=== PATIENT | female | born 1975 | race Caucasian/White ===

== ENCOUNTER 2021-10-09 13:11 | Emergency (ER) | payer MEDICAID ==
[~2021-10-09] VITALS: Ht 160 cm; Wt 80.3 kg
[2021-10-09 13:42] VITALS: BP 120/74
--- NOTE | 2021-10-09 13:46 | NUR ---
[facility]
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
[2021-10-09] MEDS ORDERED: KETOROLAC 30 MG/ML VIAL IM ONE (14:10)
--- NOTE | 2021-10-09 14:30 | NUR ---
STEVEN TAI AT PT SIDE FOR EVAL
[2021-10-09] MEDS ORDERED: ACET-10509 PO (15:08)
[2021-10-09] MEDS ORDERED: IBUP-2213 PO (15:08)
--- NOTE | 2021-10-09 15:30 | NUR ---
SHORT LEG POSTERIOR SPLINT APPLIED TO R LOWER LEG. + CMS AFTER APPLICATION. STIRRUP, PRE-FABRICATED, APPLIED TO R ANKLE. + CMS AFTER APPLICATION.
[2021-10-09 15:40] VITALS: BP 120/74
--- NOTE | 2021-10-09 15:42 | NUR ---
Patient discharged with v/s stable. Written and verbal after care instructions given and explained. Patient alert, oriented and verbalized understanding of instructions. Ambulatory with steady gait. All questions addressed prior to discharge. ID band removed. Patient advised to follow up with PMD. Rx of IBUPROFEN AND TYLENOL EXTRA STRENGTH given. Patient educated on indication of medication including possible reaction and side effects. Opportunity to ask questions provided and answered.
== END 2021-10-09 15:52 | disposition home or self-care (01) ==
LOC: MED 13:11
DX: S82.841A Displaced bimalleolar fracture of right lower leg, initial encounter for closed fracture (principal); Z79.899 Other long term (current) drug therapy; X58.XXXA Exposure to other specified factors, initial encounter; Y93.89 Activity, other specified; Y92.89 Other specified places as the place of occurrence of the external cause; Y99.8 Other external cause status
CPT/HCPCS: 29515; 73610; 96372; 99283; J1885